=== PATIENT | female | born 1980 | race African-American/Black ===

== ENCOUNTER 2018-04-02 00:46 | Emergency (ER) | payer MEDICAID ==
[~2018-04-02] VITALS: Ht 154.9 cm; Wt 113.0 kg
[2018-04-02] MEDS ORDERED: BACITRACIN ZINC OINT UDPKT TOP ONE (01:30)
[2018-04-02] MEDS ORDERED: ACETAMINOPHEN 500MG TABLET PO ONE (01:30)
[2018-04-02 01:41] VITALS: BP 137/87
== END 2018-04-02 01:42 | disposition home or self-care (01) ==
LOC: ER 00:46
DX: S50.811A Abrasion of right forearm, initial encounter (principal); S80.12XA Contusion of left lower leg, initial encounter; Y04.2XXA Assault by strike against or bumped into by another person, initial encounter; Y07.01 Husband, perpetrator of maltreatment and neglect; Y93.89 Activity, other specified; Y92.096 Garden or yard of other non-institutional residence as the place of occurrence of the external cause
CPT/HCPCS: 99283